=== PATIENT | female | born 1935 | race Caucasian/White ===

== ENCOUNTER 2016-07-02 08:22 | Emergency (ER) | payer OTHER ==
[~2016-07-02] VITALS: Ht 134.6 cm; Wt 41.6 kg
[~2016-07-02 08:22] MED LIST: Aspirin E.C. PO; CIPRO500 MG PO; Cipro PO; FLAGYL500 MG PO; GLUCOTROL XL2.5 MG PO; IBUPROFEN; LISINOPRIL2.5 MG PO; PERCOCET 5/31 TABLET PO; PRILOSEC20 MG PO; PROZAC20 MG PO; SEROQUEL PO; ULTRAM50 MG PO; [UNRECOGNIZED DRUG - REMARK]; [UNRECOGNIZED DRUG - REMARK]
[2016-07-02 09:40] LABS: HEMATOCRIT 43.3 % (36.0-46.0); MCH 28.7 PG (29.0-34.0); MCHC 33.9 G/DL (30.0-36.0); MCV 84.6 FL (83-99); MEAN PLAT.VOLUME 9.8 uM^3 (9.5-12.4); PLATELET COUNT 480 K/uL (156-360); RBC DIS.WIDTH-CV 14.1 % (11.8-14.6); RED BLOOD COUNT 5.12 M/uL (3.80-5.20); WHITE BLOOD COUNT 16.1 K/uL (4.1-10.2)
[2016-07-02 09:51] LABS: CHLORIDE 105 mEq/L (99-109); POTASSIUM 3.7 mEq/L (3.7-5.4); SODIUM 138 mEq/L (136-147)
[2016-07-02 09:53] LABS: GLUCOSE 113 mg/dL (70-99)
[2016-07-02 09:54] LABS: ANION GAP 10 MEQ/L (2-14)
[2016-07-02 09:55] LABS: TOTAL BILIRUBIN 0.3 mg/dL (0.0-1.0)
[2016-07-02 09:57] LABS: ALKALINE PHOSPHATASE 60 IU/L (3-129); GFR ESTIMATE (CALCULATED) 57 mL/min/
[2016-07-02 09:58] LABS: UREA NITROGEN (BUN) 21 mg/dL (9-23)
[2016-07-02 11:11] LABS: ADD MIUA? NO; BILIRUBIN NEGATIVE; BLOOD NEGATIVE; COLOR YELLOW ((YELLOW)); GLUCOSE (STRIP) NEGATIVE; KETONES NEGATIVE; LEUKOCYTES NEGATIVE; NITRITE NEGATIVE; PROTEIN (STRIP) NEGATIVE; SPECIFIC GRAVITY 1.012 (1.000-1.030); UROBILINOGEN 0.2 MG/DL (0.2-1.0)
[2016-07-02 11:13] LABS: UCUL ADDED? NO
[2016-07-02 13:31] VITALS: BP 149/87
== END 2016-07-02 13:32 | disposition home or self-care (01) ==
LOC: EME 08:22
DX: K52.9 Noninfective gastroenteritis and colitis, unspecified (principal); D72.829 Elevated white blood cell count, unspecified; K44.9 Diaphragmatic hernia without obstruction or gangrene; I77.811 Abdominal aortic ectasia; E11.9 Type 2 diabetes mellitus without complications; I10 Essential (primary) hypertension; Z79.82 Long term (current) use of aspirin
CPT/HCPCS: 74177; 80053; 81003; 85027; 99281; 99284

== ENCOUNTER → 2016-08-14 | Outpatient (CLI) | payer OTHER ==
[~2016-08-14] VITALS: Ht 124.5 cm; Wt 40.4 kg
[~2016-08-14] MED LIST changes: +ASPIRIN81 M2 PO
[2016-08-14 11:22] LABS: HEMATOCRIT 37.8 % (36.0-46.0); MCH 28.3 PG (29.0-34.0); MCHC 32.5 G/DL (30.0-36.0); MCV 87.1 FL (83-99); MEAN PLAT.VOLUME 9.6 uM^3 (9.5-12.4); PLATELET COUNT 353 K/uL (156-360); RBC DIS.WIDTH-CV 13.9 % (11.8-14.6); RBC DIS.WIDTH-SD 43.3 % (39-53); RED BLOOD COUNT 4.34 M/uL (3.80-5.20); WHITE BLOOD COUNT 6.3 K/uL (4.1-10.2)
[2016-08-14 11:32] LABS: CHLORIDE 107 mEq/L (99-109); POTASSIUM 4.4 mEq/L (3.7-5.4); SODIUM 141 mEq/L (136-147)
[2016-08-14 11:35] LABS: GLUCOSE 111 mg/dL (70-99)
[2016-08-14 11:36] LABS: ANION GAP 12 MEQ/L (2-14); TOTAL BILIRUBIN 0.7 mg/dL (0.0-1.0)
[2016-08-14 11:38] LABS: ALKALINE PHOSPHATASE 56 IU/L (3-129); GFR ESTIMATE (CALCULATED) 57 mL/min/
[2016-08-14 11:39] LABS: UREA NITROGEN (BUN) 18 mg/dL (9-23)
== END | disposition home or self-care (01) ==
LOC: AMB 10:34
PROVIDERS: Anesthesiology
PROC: 0DJ08ZZ Inspection of Upper Intestinal Tract, Via Natural or Artificial Opening Endoscopic (ICD-10-PCS; principal; 2016-08-14)
DX: R93.3 Abnormal findings on diagnostic imaging of other parts of digestive tract (principal); K44.9 Diaphragmatic hernia without obstruction or gangrene; K22.10 Ulcer of esophagus without bleeding; I10 Essential (primary) hypertension
CPT/HCPCS: 80053; 85027

== ENCOUNTER 2017-10-10 20:44 | Inpatient (IN) | payer OTHER ==
[~2017-10-10] VITALS: Ht 157.5 cm; Wt 42.8 kg
[~2017-10-10 20:44] MED LIST changes: +ADULT ASPIRIN R81 MG PO; +PRINIVIL5 MG PO
[2017-10-10 22:18] LABS: HEMATOCRIT 36.7 % (36.0-46.0); HEMOGLOBIN 12.4 G/DL (11.9-15.5); MCH 30.1 PG (29.0-34.0); MCHC 33.8 G/DL (30.0-36.0); MCV 89.1 FL (83-99); PLATELET COUNT 399 K/uL (156-360); RBC DIS.WIDTH-CV 13.1 % (11.8-14.6); RBC DIS.WIDTH-SD 42.5 % (39-53); RED BLOOD COUNT 4.12 M/uL (3.80-5.20); WHITE BLOOD COUNT 14.8 K/uL (4.1-10.2)
[2017-10-10 22:26] LABS: ALBUMIN 4.1 g/dL (3.2-4.8); CHLORIDE 106 mEq/L (99-109); POTASSIUM 3.7 mEq/L (3.7-5.4)
[2017-10-10 22:27] LABS: SODIUM 140 mEq/L (136-147)
[2017-10-10 22:29] LABS: GLUCOSE 115 mg/dL (70-99); TOTAL PROTEIN 6.8 g/dL (6.4-8.3)
[2017-10-10 22:31] LABS: TOTAL BILIRUBIN 0.3 mg/dL (0.0-1.0)
[2017-10-10 22:32] LABS: ALKALINE PHOSPHATASE 66 IU/L (3-129); CREATININE 0.9 mg/dL (0.6-1.3); GFR ESTIMATE (CALCULATED) > 59 mL/min/
[2017-10-10 22:34] LABS: AST (GOT) 15 IU/L (2-34); UREA NITROGEN (BUN) 25 mg/dL (9-23)
[2017-10-10 22:35] LABS: ALT (GPT) 16 IU/L (3-49)
[2017-10-10] MEDS ORDERED: CARAFATE1 GM PO (23:06)
[2017-10-10] MEDS ORDERED: DETROL2 MG PO (23:07)
[2017-10-10] MEDS ORDERED: MOBIC7.5 MG PO (23:07)
[2017-10-11] VITALS (7 sets, daily range): BP systolic 111–158; BP diastolic 59–85
[2017-10-11 00:50] LABS: HEMATOCRIT 38.1 % (36.0-46.0); HEMOGLOBIN 12.5 G/DL (11.9-15.5); MCH 30.4 PG (29.0-34.0); MCHC 32.8 G/DL (30.0-36.0); MCV 92.7 FL (83-99); PLATELET COUNT 363 K/uL (156-360); RBC DIS.WIDTH-CV 13.1 % (11.8-14.6); RBC DIS.WIDTH-SD 44.1 % (39-53); RED BLOOD COUNT 4.11 M/uL (3.80-5.20); WHITE BLOOD COUNT 14.6 K/uL (4.1-10.2)
[2017-10-11 07:47] LABS: APPEARANCE CLEAR ((CLEAR)); BILIRUBIN NEGATIVE; BLOOD NEGATIVE; COLOR YELLOW ((YELLOW)); GLUCOSE (STRIP) NEGATIVE; KETONES NEGATIVE; LEUKOCYTES NEGATIVE; NITRITE NEGATIVE; PROTEIN (STRIP) NEGATIVE; SPECIFIC GRAVITY 1.016 (1.000-1.030); UCUL ADDED? NO; UROBILINOGEN 0.2 MG/DL (0.2-1.0)
[2017-10-11 16:57] LABS: HEMATOCRIT 39.9 % (36.0-46.0); HEMOGLOBIN 12.7 G/DL (11.9-15.5); MCH 29.1 PG (29.0-34.0); MCHC 31.8 G/DL (30.0-36.0); MCV 91.3 FL (83-99); PLATELET COUNT 366 K/uL (156-360); RBC DIS.WIDTH-SD 43.4 % (39-53); RED BLOOD COUNT 4.37 M/uL (3.80-5.20); WHITE BLOOD COUNT 18.1 K/uL (4.1-10.2)
[2017-10-12 01:06] VITALS: BP 113/63
[2017-10-12 04:42] VITALS: BP 116/72
[2017-10-12 06:15] LABS: BASOPHIL (%) 0.4 % (0-1); BASOPHIL COUNT 0.1 K/uL (0-0.1); EOSINOPHIL (%) 0.2 % (0-5); HEMATOCRIT 30.1 % (36.0-46.0); IMMATURE GRANULOCYTE (%) 0.3 % (0.0-0.7); LYMPHOCYTE (%) 11.1 % (15-42); LYMPHOCYTE COUNT 1.3 K/uL (1.0-2.8); MCH 29.1 PG (29.0-34.0); MCHC 32.9 G/DL (30.0-36.0); MCV 88.5 FL (83-99); MONOCYTE COUNT 1.2 K/uL (0-0.8); NEUTROPHIL COUNT 9.4 K/uL (1.8-6.4); PLATELET COUNT 330 K/uL (156-360); RBC DIS.WIDTH-SD 42.2 % (39-53); WHITE BLOOD COUNT 12.1 K/uL (4.1-10.2)
[2017-10-12 06:21] LABS: HEMOGLOBIN 9.9 G/DL (11.9-15.5)
[2017-10-12 06:26] LABS: ALBUMIN 3.1 G/DL (3.2-4.8); ALKALINE PHOSPHATASE 40 IU/L (3-129); ALT (GPT) 10 IU/L (3-49); AST (GOT) 13 IU/L (2-34); CHLORIDE 102 MEQ/L (99-109); CREATININE 0.8 MG/DL (0.6-1.3); GFR ESTIMATE (CALCULATED) > 59 mL/min/; GLUCOSE 154 mg/dL (70-99); POTASSIUM 3.8 MEQ/L (3.7-5.4); SODIUM 135 MEQ/L (136-147); TOTAL BILIRUBIN 0.6 MG/DL (0.0-1.0); TOTAL PROTEIN 5.4 G/DL (6.4-8.3); UREA NITROGEN (BUN) 15 mg/dL (9-23)
[2017-10-12 07:59] VITALS: BP 11/57; BP 111/57
[2017-10-12 11:21] VITALS: BP 117/61
[2017-10-12 17:09] VITALS: BP 115/76
[2017-10-12 20:00] VITALS: BP 136/63
[2017-10-13] VITALS: BP 117/61
[2017-10-13 03:56] VITALS: BP 98/56
[2017-10-13 05:37] LABS: BASOPHIL (%) 0.4 % (0-1); BASOPHIL COUNT 0.1 K/uL (0-0.1); EOSINOPHIL (%) 1.1 % (0-5); EOSINOPHIL COUNT 0.1 K/uL (0-0.3); HEMATOCRIT 28.4 % (36.0-46.0); HEMOGLOBIN 9.2 G/DL (11.9-15.5); IMMATURE GRANULOCYTE (%) 0.5 % (0.0-0.7); LYMPHOCYTE (%) 18.6 % (15-42); LYMPHOCYTE COUNT 2.3 K/uL (1.0-2.8); MCH 29.4 PG (29.0-34.0); MCHC 32.4 G/DL (30.0-36.0); MCV 90.7 FL (83-99); MONOCYTE (%) 14.9 % (3-12); MONOCYTE COUNT 1.8 K/uL (0-0.8); NEUTROPHIL (%) 64.5 % (45-76); PLATELET COUNT 304 K/uL (156-360); RBC DIS.WIDTH-CV 13.2 % (11.8-14.6); RBC DIS.WIDTH-SD 43.8 % (39-53); RED BLOOD COUNT 3.13 M/uL (3.80-5.20); WHITE BLOOD COUNT 12.4 K/uL (4.1-10.2)
[2017-10-13 06:04] LABS: CHLORIDE 105 MEQ/L (99-109); GFR ESTIMATE (CALCULATED) 57 mL/min/; GLUCOSE 115 mg/dL (70-99); POTASSIUM 3.6 MEQ/L (3.7-5.4); SODIUM 138 MEQ/L (136-147); UREA NITROGEN (BUN) 17 mg/dL (9-23)
[2017-10-13 08:40] VITALS: BP 121/66
[2017-10-13 13:24] VITALS: BP 117/59
[2017-10-13] MEDS ORDERED: BISAC-EVAC10 MG PR (17:06)
[2017-10-13] MEDS ORDERED: CITROMA296 ML PO (17:07)
[2017-10-13] MEDS ORDERED: DOCUSATE SODIU100 MG PO (17:07)
[2017-10-13] MEDS ORDERED: SENNA PLUS TAB1 EACH PO (17:08)
[2017-10-13] MEDS ORDERED: Milk Of Magnesia,MOM PO (17:10)
[2017-10-13] MEDS ORDERED: HYDROCODON-ACE1 EAC7 PO (17:10)
== END 2017-10-13 19:12 | DRG 470 ==
LOC: EME 20:44 → EDOF 23:40 → 3EAST 23:40 → ENRESERV 23:41 → 3EAST 10-11 01:35
PROVIDERS: Emergency Medicine; Hospitalist; Orthopaedic Surgery; Student in an Organized Health Care Education/Training Program
PROC: 0SRR01A Replacement of Right Hip Joint, Femoral Surface with Metal Synthetic Substitute, Uncemented, Open Approach (ICD-10-PCS; principal; 2017-10-11)
DX: S72.011A Unspecified intracapsular fracture of right femur, initial encounter for closed fracture (principal); D62 Acute posthemorrhagic anemia; W18.30XA Fall on same level, unspecified, initial encounter; Y92.009 Unspecified place in unspecified non-institutional (private) residence as the place of occurrence of the external cause; I10 Essential (primary) hypertension; K21.9 Gastro-esophageal reflux disease without esophagitis; Z79.82 Long term (current) use of aspirin; G40.909 Epilepsy, unspecified, not intractable, without status epilepticus; B35.9 Dermatophytosis, unspecified; E11.9 Type 2 diabetes mellitus without complications
CPT/HCPCS: 71045; 73501; 73502; 80048; 80053; 81003; 85014; 85018; 85025; 85027; 86850; 86900; 86901; 93005; 94799; 99202; 99281; 99285; J0131; J0690; J1170; J1650; J2405; J3010; S0020